=== PATIENT | male | born 1985 | race Caucasian/White ===

== ENCOUNTER 2021-10-13 00:20 | Emergency (ER) | payer OTHER ==
[2021-10-13 01:50] LABS: HEMOGLOBIN 16.6 gm/dl (14.0-17.5); RED BLOOD COUNT 5.35 M/UL (4.20-5.50); WHITE BLOOD COUNT 9.7 K/UL (4.5-11.0)
[2021-10-13 02:19] LABS: BUN/CREATININE RATIO 24 (0-10)
== END 2021-10-13 10:20 | disposition home or self-care (01) ==
LOC: ER1 00:20
PROVIDERS: Student in an Organized Health Care Education/Training Program
DX: G93.40 Encephalopathy, unspecified (principal)
CPT/HCPCS: 70450; 71045; 80053; 80307; 81001; 82550; 82553; 82962; 83605; 84484; 85025; 93005; 99285; G0480